=== PATIENT | female | born 1935 | race Caucasian/White ===

== ENCOUNTER 2025-07-10 11:28 | Emergency (ER) | payer MEDICARE ==
[~2025-07-10] VITALS: Ht 154.9 cm; Wt 36.8 kg
[2025-07-10 11:32] VITALS: TEMP 98.5
--- NOTE | 2025-07-10 12:55 | Physician Documentation ---
History of Present Illness ~ General Chief Complaint: See Chief Complaint Stated Complaint: HYPPOTENSION Time Seen by MD: 12:42 History of Present Illness Initial Comments This is an 89-year-old female sent in by her primary care provider for concern f or hypotension, dementia, and failure to thrive. Patient reports that she has had some issues losing weight recently though reports that she is able to take care of herself and receives meals from [employer], eats at the [employer] [facility] during the week, has a great grandchild that helps her with her shopping, and is able to provide transportation for self by bus. Patient reports no acute symptoms or concerns. Medication Reconciliation Allergies: Coded Allergies: No Known Allergies (Unverified , 07/10/25) Scheduled Cephalexin*Monohydrate* (Keflex*), 1 CAP PO QID Review of Systems ROS As stated above in the HPI, otherwise all systems are reviewed and negative. Physical Exam Physical Exam Vital Signs: Temperature: 98.5, Source: Temporal, Heart Rate: 59, Respiratory Rate: 18, BP: 118/44, Pulse Oximetry: 94, Weight: 36.820 Oxygen Flow Rate: 0 Physical Exam VITALS: Reviewed and as above. GENERAL: Alert, nontoxic appearing, no apparent distress. RESPIRATORY: No increased work of breathing, no respiratory distress, speaking in full clear sentences Progress Results/Orders Results/Orders Completed Orders - LILA PALOMO Ua With Microscopic (07/10/25 12:13) Vital Signs 07/10/25 07/10/25 11:32 13:13 Temp 98.5 Pulse 59 87 Resp 18 18 B/P (MAP) 118/44 120/72 (88) Pulse Ox 94 96 O2 Flow Rate 0 0 Laboratory Tests Test 07/10/25 12:13 Urine Specimen Description Cln catch midstream Urine Color Isabell Urine Clarity Cloudy Urine pH 5.5 Urine Specific Todd >=1.030 Urine Protein Trace Urine Glucose (UA) 100 H Urine Ketones 15 H Urine Occult Blood Negative Urine Nitrite Positive H Urine Bilirubin Moderate Urine Urobilinogen 2.0 H Urine Leukocyte Esterase Small H Urine RBC None seen Urine WBC 5-10 H Urine Squamous Epithelial Cells Few Urine Transitional Epithelial Cells Few Urine Calcium Oxalate Crystals 2+ Urine Bacteria 2+ Urine Mucus Few Volume Urine Centrifuged 5 ml Urine Comment Low volume Medical Decision Making Findings This patient was sent by primary care provider for concern for dementia, failure to thrive, and hypotension, though vital signs did not indicate patient is hypotensive and my exam demonstrates patient is alert and oriented x4 and was able to articulate a plan to care for herself. Patient reports no desire for inpatient admission as she prefers to go home. Nursing staff called the primary care office in lengthy discussion about the patient's condition and primary care provider agreed to reassess the patient. Urinalysis was ordered to evaluate for urinary tract infection as a possible cause of possible transient confusion, urinalysis was consistent with urinary tract infection though patient does not show symptoms including no acute confusion currently. Patient discharged on course of oral antibiotics. Patient is hemodynamically stable and appropriate for discharge for follow up with primary care provider for possible referral to other outpatient services. Patient provided with follow up instructions and return to care precautions which he verbalized understanding of. Differential Diagnosis Urosepsis, sepsis, metabolic encephalopathy, hypotension, gravely disabled Departure Time of Disposition: 14:08 Disposition: 01 HOME / SELF CARE / HOMELESS Impression: Primary Impression: Urinary tract infection Qualified Codes: N30.00 - Acute cystitis without hematuria Condition: Improved Discharge Instructions: Urinary Tract Infection, Adult, [id number] Additional Instructions: Please take the antibiotics as prescribed. Please follow up with your primary care provider in the next few days. Please return to the emergency department for any new or worsening concerning symptoms. Referrals: NO PRIMARY CARE PROVIDER (PCP) Prescriptions Cephalexin*Monohydrate* (Keflex*) 500 Mg Capsule 1 CAP PO QID for 7 Days, #28 CAP Prov: LILA PALOMO 07/10/25 Education Educated: Patient Educated regarding: diagnosis, treatment, prognosis, need for follow up Signature Scribe Signature: No scribe Attestation: The note accurately reflects work and decisions made by me.RIC Llanes 07/10/25 20:24 LILA PALOMO Jul 10, 2025 12:55
[2025-07-10 13:13] VITALS: BP 120/72; PULSE 87; RESP 18; O2SAT 96
[2025-07-10 13:23] LABS: LEUKOCYTE ESTERASE ,URINE SMALL (Neg); NITRITES, URINE POSITIVE (Neg); OCCULT BLOOD,URINE NEGATIVE (Neg)
[2025-07-10 13:29] LABS: UA COLLECTION TYPE CLN CATCH MIDSTREAM
[2025-07-10 13:32] LABS: CAL OXALATE CRYSTALS 2+ /HPF (NEGATIVE)
[2025-07-10 13:33] LABS: MUCUS STRANDS FEW /LPF (Neg); SQUAMOUS EPITHELIAL CELL,UR FEW /LPF (FEW)
[2025-07-10] MEDS ORDERED: CEPH-585 PO (14:11)
== END 2025-07-10 14:33 | disposition home or self-care (01) ==
LOC: ER 11:30
DX: N39.0 Urinary tract infection, site not specified (principal)
CPT/HCPCS: 81001; 99283

== ENCOUNTER 2025-07-13 13:11 | Emergency (ER) | payer MEDICARE ==
[~2025-07-13] VITALS: Ht 165.1 cm; Wt 38.0 kg
[~2025-07-13 13:11] MED LIST: CEPH-585 PO
--- NOTE | 2025-07-13 13:47 | Physician Documentation ---
History of Present Illness ~ Chief Complaint: See Chief Complaint Stated Complaint: WEAKNESS Time Seen by MD: 13:25 Primary Medical Doctor: TANIKA TAYLOR [facility] 89-year-old female, brought in by EMS reportedly found down EMS reports that a welfare check was performed in the patient, and they found her lying on the ground. She was brought to the emergency department. The patient tells me that she was recently seen here and diagnosed with a urinary tract infection. She has been taking Keflex as prescribed. She tells me that she did have a fall recently where she bumped her head and bumped her right elbow. She denies having a significant headache. Today, she tells me that she likes to open all of her windows and lay on the floor with her cat. An ambulance came, and told her to get in the ambulance so she came here to the ER She denies any other symptoms. She does not think she really needs to be here. She tells me she has been eating at the [employer] every day. She denies any abdominal pain, vomiting, or other concerns. Tetanus within 5 Years?: Yes Medication Reconciliation Allergies: Coded Allergies: No Known Allergies (Unverified , 07/10/25) Scheduled Cephalexin*Monohydrate* (Keflex*), 1 CAP PO QID Review of Systems All Other Systems at this time: Reviewed and Negative Constitutional: Reports: weakness Musculoskeletal: Reports: joint pain, joint swelling Physical Exam Vital Signs: Temperature: 98.7, Source: Oral, Heart Rate: 72, Respiratory Rate: 16, BP: 103/71, Pulse Oximetry: 98, Weight: 38.000 Oxygen Flow Rate: 0 Physical Exam General: This is a pleasant elderly woman sitting calmly in bed, calm and cooperative HEENT: Contusion with superficial abrasion over the right forehead oropharynx is moist Heart: Regular rate and rhythm, normal-appearing peripheral perfusion Lungs: normal work of breathing, normal oxygen saturation on room air Abdomen: Soft, nondistended, nontender all quadrants Extremities: Warm and well-perfused Right upper extremity: The patient does have bruising and swelling over her right elbow. She is able to move her elbow without significant limitation although she does have tenderness on palpation of the elbow Neuro: Alert and oriented, does not seem confused, does have some trouble with some history questions Psychiatric: Calm and cooperative with exam Progress Results/Orders Results/Orders Orders - NARCISO CHILD MD Ct Head (07/13/25 13:54) Urinalysis (07/13/25 14:28) Elbow,Limited (Ap/Lat) (07/13/25 14:00) Completed Orders - NARCISO CHILD MD Ct Head (07/13/25 13:54) Cbc/Diff (07/13/25 14:27) CMP (07/13/25 14:27) Elbow,Limited (Ap/Lat) (07/13/25 14:00) Vital Signs 07/13/25 07/13/25 07/13/25 13:23 14:29 17:17 Temp 98.7 Pulse 72 62 67 Resp 16 16 16 B/P (MAP) 103/71 124/57 (79) 114/72 (86) Pulse Ox 98 96 100 O2 Flow Rate 0 0 0 Laboratory Tests Test 07/13/25 14:42 White Blood Count 12.4 H Red Blood Count 4.38 Hemoglobin 14.0 Hematocrit 40.6 Mean Corpuscular Volume 92.7 Mean Corpuscular Hemoglobin 32.0 H Mean Corpuscular Hemoglobin Concent 34.5 Red Cell Distribution Width 15.5 H Platelet Count 327 Mean Platelet Volume 9.0 Neutrophils (%) (Auto) 76.3 H Lymphocytes (%) (Auto) 16.3 L Monocytes (%) (Auto) 6.2 Eosinophils (%) (Auto) 0.3 Basophils (%) (Auto) 0.9 Neutrophils # (Auto) 9.4 H Lymphocytes # (Auto) 2.0 Monocytes # (Auto) 0.8 Eosinophils # (Auto) 0.0 Basophils # (Auto) 0.1 CBC Comment Sodium Level 137 Potassium Level 3.2 L Chloride Level 102 Carbon Dioxide Level 29.0 Anion Gap 6 L Blood Urea Nitrogen 18 Creatinine 0.75 Estimated GFR/1.73 m2 73 BUN/Creatinine Ratio 24.0 H Glucose Level 67 L Calcium Level 8.7 Total Bilirubin 1.8 H Aspartate Amino Transf (AST/SGOT) 46 H Alanine Aminotransferase (ALT/SGPT) 29 Alkaline Phosphatase 52 Total Protein 6.6 Albumin 2.8 L Globulin 3.8 Albumin/Globulin Ratio 0.7 L Chemistry Comments EKG/XRAY/CT/US/VASC/MRI Bone/Soft Tissue X-Ray (Ext.) : Additional Comment I personally interpreted the x-ray, and it shows: No fracture, dislocation or joint effusion CT : Impression I personally interpreted the CT scan, and this shows no intracranial hemorrhage Medical Decision Making Additional info obtained from: family Findings The patient's daughter reports that she has had multiple [employer] calls check on the patient and that her house is in poor condition Additional Comment The patient presents with a possible fall and weakness. Here in the ED she denies any significant symptoms. She does have evidence of head injury but head CT shows no fracture or hemorrhage. She also has significant swelling and bruising to right elbow, but x-ray shows no fracture. Labs do not show any dangerous findings. She already is on antibiotics for urinary tract infection. She was able to ambulate. I did recommend admission given her generalized weakness, but she declined. She wanted to return home. She is quite weak and appears to be at high risk for further falls and injuries. However she appears able to make her own medical decisions and so she will be discharged at her request. Her daughter was contacted and will follow up with her and try to get more resources for her at home. Departure Time of Disposition: 17:57 Disposition: 01 HOME / SELF CARE / HOMELESS Impression: Primary Impression: Generalized weakness Condition: Stable Discharge Instructions: Weakness Referrals: NO PRIMARY CARE PROVIDER (PCP) Education Educated: Patient, Family Educated regarding: diagnosis, need for follow up Signature Scribe Signature: edith Attestation: NARCISO Nj MD Jul 13, 2025 13:47
--- NOTE | 2025-07-13 14:38 | RADIOLOGY REPORT ---
EXAM: CT CT HEAD HISTORY: Fall, head injury COMPARISON: None TECHNIQUE: Noncontrast axial CT images of the head were performed. Sagittal and coronal reformatted i mages were obtained. This CT exam was performed using 1 or more of the following dose reduction techn iques: Automated exposure control, adjustment of the mA and/or kv according to patient size, or the u se of iterative reconstruction techniques. Radiation Dose: CTDI volume is 44.59 mGy. Dose-length product is 816.41 mGy*cm FINDINGS: There is mild global brain atrophy. There is [id number] decreased attenuation in the periventr icular white matter, bilateral basal ganglia, and bilateral external capsules. No intracranial hemorr zan, mass, midline shift, hydrocephalus, or evidence of acute large vessel infarct. There are athero sclerotic calcifications of the cavernous ICAs and left terminal vertebral artery. There are postope rative changes of bilateralcataract extraction surgery. The paranasal sinuses are clear. The bilater al mastoid air cells and middle ear spaces are clear. There are numerous dental caries involving the visualized maxillary teeth. No cranial fracture or scalp edema. IMPRESSION: 1. Global brain atrophy and chronic ischemic changes without evidence of acute intracranial process. 2. Numerous dental caries. The teeth are not fully imaged here. Recommend outpatient dental consult ation.
[2025-07-13 14:56] LABS: MEAN PLATELET VOLUME 9.0 FL (7.4-10.4); RED CELL DISTRIBUTION WIDTH 15.5 % (11.5-14.5)
[2025-07-13 15:24] LABS: CREATININE 0.75 MG/DL (0.40-0.90); TOTAL CARBON DIOXIDE 29.0 MMOL/L (24-32); eCRCL 32 ML/MIN; eGFR 73 ML/MIN
--- NOTE | 2025-07-13 15:27 | RADIOLOGY REPORT ---
EXAM: DI ELBOW,LIMITED (AP/LAT) CLINICAL HISTORY: Fall, right elbow pain and swelling COMPARISON: None TECHNIQUE: DI ELBOW,LIMITED (AP/LAT) Findings/Impression: 2 views of the right elbow. Suboptimal lateral view. There is no definite evidence of an acute fracture, dislocation, blastic, or lytic lesions. No radiopaque foreign bodies. Osteopenia. No joint effusion or superficial soft tissue abnormalities. If there is high clinical suspicion for an acute fracture, recommend CT for further evaluation.
[2025-07-13 18:51] VITALS: BP 118/56; PULSE 70; RESP 16; TEMP 97.9; O2SAT 99
== END 2025-07-13 18:53 | disposition home or self-care (01) ==
LOC: ER 13:11
DX: R53.1 Weakness (principal); N39.0 Urinary tract infection, site not specified; R51.9 Headache, unspecified
CPT/HCPCS: 36415; 70450; 73070; 80053; 85025; 99285